=== PATIENT | female | born 1950 | race Caucasian/White ===

== ENCOUNTER → 2016-08-15 | Outpatient (CLI) | payer MEDICARE ==
--- NOTE | 2016-08-15 14:25 | KCIC ---
Examination: MRI of the left ankle without contrast HISTORY: History of chronic left heel pain COMPARISON: None available Technique: Multiplanar, multisequence MR imaging of the left ankle without contrast. FINDINGS: The attachment of the Achilles tendon to the calcaneus grossly appears intact. The attachment of the plantar fascia to the inferior aspect of the calcaneus is intact. There is minimal STIR signal identified in the lateral portion of the plantaris fascia attachment to the the calcaneus and surrounding soft tissue. The visualized subtalar joints grossly unremarkable. Fat is present within the sinus tarsi. The ankle mortise appears intact. The deltoid ligament appears intact. The anterior and posterior talofibular ligament and tibiofibular ligament appear intact. The calcaneal fibular ligament appears intact. The flexor tendons, extensor compartment tendon grossly appears intact. The peroneal tendons are intact. IMPRESSION: Minimal STIR signal identified in the lateral portion of the plantaris fascia attachment to the the calcaneus and surrounding soft tissue could be mild plantar fasciitis. Electronically signed by: Blayne Schneider MD (08/15/2016 2:22 PM)
== END | disposition home or self-care (01) ==
LOC: KCIC MRI 13:28
PROVIDERS: ATTEND Family Medicine
DX: M25.572 Pain in left ankle and joints of left foot (principal); G89.29 Other chronic pain
CPT/HCPCS: 73721

== ENCOUNTER 2017-02-28 11:01 | Day surgery (SDC) | payer MEDICARE ==
[~2017-02-28 11:01] MED LIST: HYDROmorphone 2 MG/ML VIAL IV; LIDOCAINE 1% PF 2 ML VIAL. ID; MORPHINE SULFATE 2 MG/ML DISP.SYRIN. IV; ONDANSETRON PF 4 MG/2 ML VIAL. IV; PROCHLORPERAZINE 10 MG/2 ML VIAL. IV; fentaNYL PF VIAL 100 MCG/2 ML VIAL IV
[2017-02-28] MEDS ORDERED: LIDOCAINE 1% PF 30 ML VIAL. (11:52)
[2017-02-28] MEDS ORDERED: DEXAMETHASONE 0.1% OPHTH SOLUTION 5ML BOTTLE. OU (12:00)
[2017-02-28] MEDS: IV RINGERS,LACTATED 1000ML 1,000 ML IV (12:03)
[2017-02-28] MEDS ORDERED: LIDOCAINE 2% PF Vial for OR 5 ML VIAL. (12:29)
[2017-02-28] MEDS ORDERED: DEXAMETHASONE SOD PHOS 20 MG/5 ML VIAL. (12:29)
[2017-02-28] MEDS ORDERED: PROPOFOL 20 ML IV (12:29)
[2017-02-28] MEDS ORDERED: ONDANSETRON PF 4 MG/2 ML VIAL. (12:29)
[2017-02-28] MEDS ORDERED: fentaNYL PF VIAL 100 MCG/2 ML VIAL ×2 (12:29)
[2017-02-28] MEDS ORDERED: CLINDAMYCIN 900MG PREMIX 50 ML IV (12:34)
[2017-02-28] MEDS: CLINDAMYCIN 900MG PREMIX 50 ML IV (13:07)
[2017-02-28] MEDS ORDERED: ePHEDrine PF IN SALINE 50 MG/5 ML DISP.SYRIN IV (13:22)
[2017-02-28] MEDS ORDERED: SEVOFLURANE 61 TO 120 MINUTES. IH (13:23)
[2017-02-28] MEDS ORDERED: GLYCOPYRROLATE 1 MG/5 ML VIAL. (13:35)
[2017-02-28] MEDS ORDERED: BACITRACIN TOPICAL OINT 14GM TUBE. TP (13:44)
[2017-02-28] MEDS ORDERED: PHENYLEPHRINE in 0.9% NACL PF 1 MG/10 ML SYRINGE. IV (14:36)
[2017-02-28] MEDS ORDERED: ESMOLOL 100 MG/10 ML VIAL. IV (14:36)
[2017-02-28] MEDS ORDERED: OXYMETAZOLINE 0.05% NASAL SPRAY 30ML BOTTLE. NS (15:44)
[2017-02-28] MEDS ORDERED: SEVOFLURANE > 120 MINUTES. IH (15:51)
[2017-02-28] MEDS: CIPROFLOXACIN 0.3% OPHTH SOLUTION 5ML BOTTLE. OU (16:48)
[2017-02-28] MEDS: GELATIN SPONGE SIZE 100. (16:49)
[2017-02-28] MEDS: MUPIROCIN 2 % NASAL OINTMENT 22GM TUBE. NS (16:49)
[2017-02-28] MEDS: EPINEPHrine VIAL 30 MG/30 ML VIAL (16:51)
[2017-02-28] MEDS ORDERED: oxyCODONE/APAP 5/325 1 TAB TABLET (17:27)
[2017-02-28] MEDS: oxyCODONE/APAP 5/325 1 TAB TABLET PO (17:28)
== END 2017-02-28 18:00 | disposition home or self-care (01) ==
LOC: SURG 11:01
DX: H72.91 Unspecified perforation of tympanic membrane, right ear (principal); H69.93 Unspecified Eustachian tube disorder, bilateral; E78.00 Pure hypercholesterolemia, unspecified; I10 Essential (primary) hypertension; E66.9 Obesity, unspecified; K21.9 Gastro-esophageal reflux disease without esophagitis; E03.9 Hypothyroidism, unspecified; F41.9 Anxiety disorder, unspecified; F32.9 Major depressive disorder, single episode, unspecified; Z86.39 Personal history of other endocrine, nutritional and metabolic disease; Z86.69 Personal history of other diseases of the nervous system and sense organs; Z87.39 Personal history of other diseases of the musculoskeletal system and connective tissue; Z88.0 Allergy status to penicillin; Z88.8 Allergy status to other drugs, medicaments and biological substances
CPT/HCPCS: 69631; J0171; J1100; J2370; J2405; J2704; J3010; J3490; J7030; J7120

== ENCOUNTER → 2018-10-21 | Outpatient (CLI) | payer MEDICARE ==
[~2018-10-21] MED LIST changes: +ASPI-630 PO; +CARV25TA PO; +CHOL2000 PO; +ESOM40CA PO; +FENO54TA PO; +HYDR-2867 PO; -HYDROmorphone 2 MG/ML VIAL IV; +IRON 65 MG; +ISOS30TA4 PO; +KETAMINE HCL IN NACL, ISO-OSM 50 MG/5 ML SYRINGE ONE; +LEVO100T PO; -LIDOCAINE 1% PF 2 ML VIAL. ID; +LISI20TA PO; +MAGNESIUM; +MIDAZOLAM HCL/PF 2 MG/2 ML VIAL. ONE; -MORPHINE SULFATE 2 MG/ML DISP.SYRIN. IV; +MULT1TAB52 PO; +OMEG1CAP6 PO; -ONDANSETRON PF 4 MG/2 ML VIAL. IV; -PROCHLORPERAZINE 10 MG/2 ML VIAL. IV; +PROPOFOL 100 ML IV ONE; +PROPOFOL 20 ML IV ONE; +ROTI1PAT4 TD; +SERT100T PO; +SPIR25TA5 PO; +SUCR1TAB PO; +TORS20TA2 PO; -fentaNYL PF VIAL 100 MCG/2 ML VIAL IV
[2018-10-21 09:38] VITALS: BP 151/67
--- NOTE | 2018-10-21 11:32 | RAD ---
EXAMINATION: Magnetic resonance imaging (MRI) of the lumbar spine without contrast 10/21/2018 8:15 AM HISTORY: Worsening low back pain with left leg radiculopathy TECHNIQUE: Multiplanar multi-weighted MRI of the lumbar spine was performed without intravenous contrast using the standard lumbar spine protocol. Contrast information: None administered. COMPARISON: MRI lumbar spine 09/25/2013 FINDINGS: Evaluation is degraded by motion artifact. The alignment of the lumbar spine is normal. Marrow is mildly heterogeneous which may reflect varying degrees of fatty and red marrow. There are no compression fractures. The conus medullaris terminates at the level of L1. The distal spinal cord signal intensity is normal. Intervertebral disks have normal height and signal intensity. There are no annular fissures identified. Limited views of the abdomen and pelvis show no soft tissue abnormality. The aorta is normal. L2-L3: The disc is normal in configuration. There is no facet arthropathy. There is no neuroforaminal stenosis. There is no spinal canal stenosis. L3-L4: The disc is normal in configuration. There is no facet arthropathy. There is no neuroforaminal stenosis. There is no spinal canal stenosis. L4-L5: There is a new left far lateral disc extrusion likely affecting the exited left L4 nerve. There is mild facet arthropathy. There is moderate left neuroforaminal stenosis. There is no spinal canal stenosis. L5-S1: Mild disc bulge. There is moderate facet arthropathy. There is no neuroforaminal stenosis. There is no spinal canal stenosis. IMPRESSION: New left far lateral disc extrusion at L4-L5 resulting in moderate left neuroforaminal stenosis and likely affecting the exited left L4 nerve. Electronically signed by: Diamond Sol MD (10/21/2018 11:29 AM) [id number]
== END | disposition home or self-care (01) ==
LOC: MRI 07:23
PROVIDERS: ATTEND Family Medicine
DX: M51.16 Intervertebral disc disorders with radiculopathy, lumbar region (principal); M46.87 Other specified inflammatory spondylopathies, lumbosacral region; M48.061 Spinal stenosis, lumbar region without neurogenic claudication; M53.3 Sacrococcygeal disorders, not elsewhere classified
CPT/HCPCS: 72148; J2250; J2704

== ENCOUNTER → 2019-06-06 | Outpatient (CLI) | payer MEDICARE ==
[2018-10-21 09:38] VITALS: BP 151/67
[~2019-06-06] MED LIST changes: -KETAMINE HCL IN NACL, ISO-OSM 50 MG/5 ML SYRINGE ONE; -MIDAZOLAM HCL/PF 2 MG/2 ML VIAL. ONE; -PROPOFOL 100 ML IV ONE; -PROPOFOL 20 ML IV ONE
--- NOTE | 2019-06-06 12:36 | RAD ---
CHEST PA LATERAL INDICATION: Fever. COMPARISON STUDY: CT 01/15/2018. FINDINGS: Lungs: Normal lung volume. No pulmonary mass or consolidation. The tracheobronchial tree and hilar structures are normal. Pleura: No pleural effusion or pneumothorax. Heart and Mediastinum: Cardiomegaly. The great vessels of the thorax are normal. Bones and Soft Tissues: Degenerative changes of the spine. IMPRESSION: No consolidation. Electronically signed by: Martell Orozco MD (06/06/2019 12:33 PM) [id number]
== END ==
LOC: RAD 11:52
PROVIDERS: ATTEND Family Medicine
DX: R50.9 Fever, unspecified (principal); I51.7 Cardiomegaly
CPT/HCPCS: 71046